=== PATIENT | female | born 1990 | race Two or more races ===

== ENCOUNTER 2018-03-02 15:47 | Emergency (ER) | payer OTHER ==
[~2018-03-02] VITALS: Ht 152.4 cm; Wt 72.6 kg
[2018-03-02] MEDS ORDERED: IBUPROFEN800 MG PO (19:25)
[2018-03-02] MEDS ORDERED: INTEGRA PLUS C1 EACH PO (19:25)
== END 2018-03-02 20:43 | disposition home or self-care (01) ==
LOC: ER 15:47
DX: R10.32 Left lower quadrant pain (principal)

== ENCOUNTER 2018-07-22 14:27 | Emergency (ER) | payer OTHER ==
[~2018-07-22] VITALS: Ht 152.4 cm; Wt 77.1 kg
[~2018-07-22 14:27] MED LIST: IBUPROFEN800 MG PO; INTEGRA PLUS C1 EACH PO
== END 2018-07-22 16:46 | disposition home or self-care (01) ==
LOC: ER 14:27
DX: M54.5 Low back pain (principal)

== ENCOUNTER 2019-04-16 18:42 | Emergency (ER) | payer OTHER ==
[~2019-04-16] VITALS: Ht 157.5 cm; Wt 74.8 kg
== END 2019-04-17 00:06 | disposition home or self-care (01) ==
LOC: ER 18:42
DX: K52.9 Noninfective gastroenteritis and colitis, unspecified (principal); D50.9 Iron deficiency anemia, unspecified

== ENCOUNTER 2019-11-19 11:51 | Emergency (ER) | payer OTHER ==
[~2019-11-19] VITALS: Ht 152.4 cm; Wt 73.5 kg
[2019-11-19] MEDS ORDERED: ZITHROMAX500 MG PO (15:11)
== END 2019-11-19 17:17 | disposition home or self-care (01) ==
LOC: ER 11:51
DX: B34.9 Viral infection, unspecified (principal); B96.0 Mycoplasma pneumoniae [M. pneumoniae] as the cause of diseases classified elsewhere

== ENCOUNTER 2020-06-15 19:03 | Emergency (ER) | payer OTHER ==
[~2020-06-15] VITALS: Ht 152.4 cm; Wt 72.6 kg
[~2020-06-15 19:03] MED LIST changes: +ZITHROMAX500 MG PO
== END 2020-06-15 22:20 | disposition home or self-care (01) ==
LOC: ER 19:03
DX: M51.26 Other intervertebral disc displacement, lumbar region (principal)

== ENCOUNTER 2020-10-12 18:47 | Emergency (ER) | payer OTHER ==
[~2020-10-12] VITALS: Ht 152.4 cm; Wt 74.4 kg
[2020-10-12] MEDS ORDERED: ADVIL (19:10)
[2020-10-12] MEDS ORDERED: NAPROXEN (19:11)
[2020-10-12] MEDS ORDERED: DICLOFENAC SODI75 MG PO (19:30)
== END 2020-10-12 19:50 | disposition home or self-care (01) ==
LOC: ER 18:47
DX: S93.402A Sprain of unspecified ligament of left ankle, initial encounter (principal); X50.0XXA Overexertion from strenuous movement or load, initial encounter; Y93.89 Activity, other specified; Y92.89 Other specified places as the place of occurrence of the external cause; Y99.8 Other external cause status